=== PATIENT | female | born 2000 | race Caucasian/White ===

== ENCOUNTER 2022-01-13 04:29 | Emergency (ER) | payer OTHER, BC ==
[2022-01-13] MEDS ORDERED: Sodium Chloride 0.9% 1,000 ML IV ONE (05:28)
[2022-01-13] MEDS ORDERED: Ketorolac 30 MG/ML SDV IVPUSH ONE (05:28)
[2022-01-13] MEDS ORDERED: Metoclopramide 10 MG/2 ML SDV IVPUSH ONE (05:28)
[2022-01-13] MEDS ORDERED: diphenhydrAMINE 50 MG/ML SDV IVPUSH ONE (05:28)
[2022-01-13 05:36] LABS: CORONAVIRUS COVID-19 NAA NEGATIVE (NEGATIVE)
== END 2022-01-13 07:00 | disposition home or self-care (01) ==
LOC: DL.ED 04:29
DX: G43.909 Migraine, unspecified, not intractable, without status migrainosus (principal); Z20.822 Contact with and (suspected) exposure to COVID-19
CPT/HCPCS: 0240U; 96374; 96375; 99284; J1200; J1885; J2765; J7030; 99282

== ENCOUNTER 2022-11-18 04:33 | Emergency (ER) | payer OTHER, BC ==
[2022-11-18] MEDS ORDERED: Ondansetron 4 MG Tab.DIS PO ONE (04:34)
[2022-11-18] MEDS ORDERED: Sodium Chloride 0.9% 1,000 ML IV ONE ×2 (04:58→05:39)
[2022-11-18] MEDS ORDERED: Ondansetron 4 MG/2 ML SDV IVPUSH ONE (04:58)
[2022-11-18] MEDS ORDERED: Metoclopramide 10 MG/2 ML SDV IVPUSH ONE (05:54)
[2022-11-18 06:17] LABS: CORONAVIRUS COVID-19 NAA NEGATIVE (NEGATIVE)
[2022-11-18] MEDS ORDERED: Ketorolac 30 MG/ML SDV IVPUSH ONE (06:26)
[2022-11-18] MEDS ORDERED: Ondansetron 4 MG Tab.DIS ONE (06:38)
== END 2022-11-18 07:05 | disposition home or self-care (01) ==
LOC: DL.ED 04:33
DX: K52.9 Noninfective gastroenteritis and colitis, unspecified (principal); R51.9 Headache, unspecified; Z79.899 Other long term (current) drug therapy; Z20.822 Contact with and (suspected) exposure to COVID-19
CPT/HCPCS: 0240U; 96361; 96374; 96375; 99284; A9270; J1885; J2405; J2765; J7030